=== PATIENT | female | born 1970 | race Two or more races ===

== ENCOUNTER 2023-12-01 11:20 | Emergency (ER) | payer BC ==
[~2023-12-01] VITALS: Ht 162.6 cm; Wt 72.5 kg
[2023-12-01] MEDS: SODIUM CHLORIDE 0.9% 1,000 ML IV ONE (12:00)
[2023-12-01 12:25] VITALS: BP 149/69; PULSE 63; RESP 16; TEMP 98.7; O2SAT 98
[2023-12-01 12:35] LABS: Basophils # (auto) 0.1 10 ^3/uL (0-0.2); Basophils % (auto) 1.2 % (0.0-2.0); Eosinophils # (auto) 0.2 10 ^3/uL (0-0.8); Eosinophils % (auto) 2.2 % (0.0-7.0); Hematocrit 38.6 % (36.0-46.0); Hemoglobin 13.1 g/dL (12.2-16.2); Lymphocytes # (auto) 2.7 10 ^3/uL (0.4-5.4); Lymphocytes % (auto) 36.8 % (10.0-50.0); Mean Corpuscular Hemoglobin 32.1 pg (28.0-32.0); Mean Corpuscular Hgb Conc. 33.9 g/dL (32.0-36.0); Mean Corpuscular Volume 94.9 fL (80.0-100.0); Monocytes # (auto) 0.3 10 ^3/uL (0-1.3); Monocytes % (auto) 4.3 % (0.0-12.0); Neutrophils % (auto) 55.5 % (37.0-80.0); Nucleated Red Blood Cells % 0.1 %; Platelet Count (auto) 379 10^3/uL (140-450); Red Blood Cells 4.07 10^6/uL (4.0-5.20); Red Cell Distribution Width 12.7 % (11.8-14.3); White Blood Cell 7.3 10^3/uL (4.4-10.8)
[2023-12-01 12:56] LABS: Alanine Aminotransferase 15 U/L (7-40); Albumin 4.3 g/dL (3.2-4.8); Alkaline Phosphatase 104 U/L (46-116); Anion Gap 4 (5-15); Aspartate Aminotransferase 13 U/L (13-40); BUN/Creatinine Ratio 18.4 (10.0-20.0); Bilirubin, Total 0.4 mg/dL (0.2-1.0); Blood Urea Nitrogen 16 mg/dL (9-23); CRP High Sensitivity 0.68 mg/dL (<1.0); Calcium 9.9 mg/dL (8.7-10.4); Carbon Dioxide 29 mmol/L (20-30); Chloride 108 mmol/L (98-107); Glucose 89 mg/dL (74-106); Potassium 4.3 mmol/L (3.5-5.1); Sodium 141 mmol/L (136-145)
[2023-12-01 12:57] LABS: Total Protein 6.5 g/dL (5.7-8.2)
[2023-12-01 13:07] LABS: Erythrocyte Sedimentation Rate 12 mm/hr (0-20)
[2023-12-01 13:57] LABS: Urine Bacteria FEW /hpf (None Seen); Urine Blood TRACE /uL (Negative); Urine Clarity Clear (Clear); Urine Color Light-Yellow (Yellow); Urine Protein, UAD Negative (Negative); Urine Specific Gravity 1.019 (1.001-1.035); Urine Urobilinogen Normal (Negative); Urine WBC 14 /hpf (0 - 5); Urine pH 5.5 (5.0-9.0)
[2023-12-01] MEDS ORDERED: CEPH500C PO (14:53)
== END 2023-12-01 14:57 | disposition left against medical advice (07) ==
LOC: ER 11:20
DX: S60.464A Insect bite (nonvenomous) of right ring finger, initial encounter (principal); E78.5 Hyperlipidemia, unspecified; Z90.710 Acquired absence of both cervix and uterus; Z98.890 Other specified postprocedural states; W57.XXXA Bitten or stung by nonvenomous insect and other nonvenomous arthropods, initial encounter; Y93.89 Activity, other specified; Y92.89 Other specified places as the place of occurrence of the external cause; Y99.8 Other external cause status
CPT/HCPCS: 36415; 80053; 81001; 82550; 83605; 85025; 85652; 86141; 93005; 96360; 99284; J7030

== ENCOUNTER 2024-04-19 06:39 | Inpatient (IN) | payer BC ==
[2024-04-13 09:43] LABS: Basophils # (auto) 0.1 10 ^3/uL (0-0.2); Basophils % (auto) 1.2 % (0.0-2.0); Eosinophils # (auto) 0.2 10 ^3/uL (0-0.8); Hemoglobin 13.5 g/dL (12.2-16.2); Lymphocytes # (auto) 2.2 10 ^3/uL (0.4-5.4); Lymphocytes % (auto) 35.3 % (10.0-50.0); Mean Corpuscular Hemoglobin 31.7 pg (28.0-32.0); Mean Corpuscular Hgb Conc. 33.7 g/dL (32.0-36.0); Mean Corpuscular Volume 94.2 fL (80.0-100.0); Monocytes # (auto) 0.3 10 ^3/uL (0-1.3); Monocytes % (auto) 4.9 % (0.0-12.0); Neutrophils # (auto) 3.5 10 ^3/uL (1.6-8.6); Neutrophils % (auto) 55.6 % (37.0-80.0); Platelet Count (auto) 358 10^3/uL (140-450); Red Blood Cells 4.24 10^6/uL (4.0-5.20); Red Cell Distribution Width 12.7 % (11.8-14.3); White Blood Cell 6.3 10^3/uL (4.4-10.8)
[2024-04-13 09:54] LABS: INR 1.01 (0.9-1.15); Partial Thromboplastin Time 28.1 SEC (24.5-34.5); Prothrombin Time 10.7 sec (9.3-11.8)
[2024-04-13 10:47] LABS: Alanine Aminotransferase 11 U/L (7-40); Albumin 4.3 g/dL (3.2-4.8); Alkaline Phosphatase 95 U/L (46-116); Anion Gap 7 (5-15); BUN/Creatinine Ratio 16.7 (10.0-20.0); Blood Urea Nitrogen 15 mg/dL (9-23); Calcium 9.8 mg/dL (8.7-10.4); Carbon Dioxide 27 mmol/L (20-31); Glucose 91 mg/dL (74-106); Potassium 4.3 mmol/L (3.5-5.1); Sodium 142 mmol/L (136-145)
[2024-04-13 10:48] LABS: Bilirubin, Total 0.7 mg/dL (0.2-1.0); Total Protein 6.5 g/dL (5.7-8.2)
[2024-04-13 10:56] LABS: Aspartate Aminotransferase 12 U/L (13-40); Chloride 108 mmol/L (98-107)
[2024-04-13 11:14] LABS: Urine Bacteria FEW /hpf (None Seen); Urine Blood 2+ /uL (Negative); Urine Clarity Turbid (Clear); Urine Color Light-Yellow (Yellow); Urine Mucus FEW (None Seen); Urine Protein, UAD 1+ (Negative); Urine Specific Gravity 1.021 (1.001-1.035); Urine Squamous Epithelial Cell FEW /hpf (<5); Urine Urobilinogen Normal (Negative); Urine WBC 44 /hpf (0 - 5)
[~2024-04-19] VITALS: Ht 162.6 cm; Wt 72.6 kg
[~2024-04-19 06:39] MED LIST: CHOL20004 PO; ESTR0.5T5 PO; FLU01T PO; GABA-339 PO; IBUP-1456 PO; LACTCAP35 OR; LOSA-534 PO; METH5TAB10 PO; ROSU10TA16 PO; SERT-206 PO; TRAZ-228 PO
[2024-04-19] MEDS: CIPROFLOXACIN 400MG/200ML 0 ML IV ONE (06:51)
[2024-04-19] MEDS ORDERED: PROPOFOL 10 MG/ML 20 ML IV ONE (06:55)
[2024-04-19] MEDS ORDERED: SUGAMMADEX 200mg/2ml Vial (100MG/ML) IV ONE ×2 (06:55→07:31)
[2024-04-19] MEDS ORDERED: ROCURONIUM 10MG/ML 10ML VIAL IV ONE ×2 (06:55→12:39)
[2024-04-19] MEDS ORDERED: LIDOCAINE HCL 2% TOP JELLY 5ML TOP ONE (06:55)
[2024-04-19] MEDS ORDERED: DexAMETHasone SOD PHOS 10MG/1ML VIAL INJ ONE ×2 (06:55→07:31)
[2024-04-19] MEDS ORDERED: ONDANSETRON HCL 4 MG/2 ML VIAL ONE ×2 (06:55→07:31)
[2024-04-19] MEDS ORDERED: LIDOCAINE 2% (LOCAL ANESTH.) PF 5ml SDV ONE ×2 (06:55→07:31)
[2024-04-19] MEDS ORDERED: GLYCOPYRROLATE 0.2 MG/ML 1ML VIAL ONE (06:55)
[2024-04-19] MEDS ORDERED: KETOROLAC TROMETH 30 MG/ML 1ML VIAL ONE (07:29)
[2024-04-19] MEDS ORDERED: fentaNYL CITRATE 100 MCG/2 ML VL ONE (11:48)
[2024-04-19] MEDS: CIPROFLOXACIN 400MG/200ML 200 ML IV ONE (11:51)
[2024-04-19] MEDS ORDERED: ePHEDrine SULFATE 50 MG/ML AMP ONE (12:13)
[2024-04-19] MEDS: IOHEXOL 300 MG/ML 100ML BOTTLE IJ ONE (12:20)
--- NOTE | 2024-04-19 13:15 | DVHDS2 ---
New Physician D'charge PN Admitting Diagnosis Admitting Diagnosis right renal stones Discharge Diagnosis Right nenal stones Right ureterocele Operations or Procedures Cystoscopy with right RPG Right URSLL laser lithotripsy with renal evacuation of stones Cystoscopy with right ureteral stent placement (6F x [address]) Reason(s) For Hospitalization Surgery Treatment Plan Discharge Condition of Discharge Good Disposition Home Discharge Instructions Diet: Regular Activity: Light activity Activity comment: as tolerated Medications: given Follow Up Care Follow Up/Referral: Cystoscopy with stent removal in 2-3 weeks Discharge Statement: "Patient was advised to return to the ER or call 911 if any headaches, dizziness, shortness of breath, chest pain, abdominal pain, bleeding, fevers, or worsening of medical condition. Patient was counseled about treatment plan, medications, possible side effects, patientverbalized understanding. All questions were answered to the best of my ability. This discharge took greater then 30 minutes in planning, reviewing documentation, counseling the patient, and discussing with other team members." JERALD CAPUTO MD Apr 19, 2024 13:15
[2024-04-19 13:31] VITALS: PULSE 92; RESP 14
[2024-04-19 13:35] VITALS: TEMP 97.3
[2024-04-19] MEDS ORDERED: hydrALAZINE HCL 20 MG/ML VL IV PRN (13:45)
[2024-04-19] MEDS ORDERED: FLUMAZENIL 0.1 MG/ML INJ 10ML MDV IV PRN (13:45)
[2024-04-19] MEDS ORDERED: ONDANSETRON HCL 4 MG/2 ML VIAL IV PRN (13:45)
[2024-04-19] MEDS ORDERED: ePHEDrine SULFATE 50 MG/ML AMP IV PRN (13:45)
[2024-04-19] MEDS ORDERED: NALOXONE HCL 0.4 MG/ML VIAL IV PRN (13:45)
[2024-04-19] MEDS: HYDROmorphone HCL 2 MG/ML VL/or syr ONE (13:50)
[2024-04-19] MEDS: HYDROmorphone HCL 2 MG/ML VL/or syr IV PRN (13:50)
[2024-04-19 14:00] VITALS: RESP 13
[2024-04-19] MEDS: oxyCODONE HCL 5MG TAB PO PRN (14:12)
[2024-04-19 14:22] VITALS: RESP 10
[2024-04-19] MEDS: fentaNYL CITRATE 100 MCG/2 ML VL IV PRN (14:22)
[2024-04-19 15:00] VITALS: RESP 16
[2024-04-19] MEDS ORDERED: HYDROmorphone HCL 2 MG/ML VL/or syr IV PRN (15:15)
[2024-04-19] MEDS ORDERED: MORPHINE SULFATE INJ 2 MG/ml SYRG IV PRN (15:15)
[2024-04-19] MEDS ORDERED: NITROGLYCERIN 0.4 MG SL TAB SL PRN (15:15)
--- NOTE | 2024-04-19 15:42 | DVH ---
Exam: CT CT AB PEL WO CON-NO ORAL OR IV History: flank pain Comparison Study: None Technique: Multidetector spiral CT of the abdomen and pelvis was performed from lung bases to pubic symphysis. Imaging was performed without IV contrast. Axial, coronal and sagittal multiplanar reform ats were obtained from the axial data set by the technologist. Radiation dose : Abdomen/Pelvis: CTDIvol 9 mGy, DLP 494 mGy*cm. Findings: Evaluation of solid organs is limited due to lack of intravenous contrast use. Lung Bases: Atelectasis and scarring in the lung bases. Liver: The liver is normal in size. No focal lesions. Gallbladder and biliary Tree: Unremarkable Spleen: Unremarkable Pancreas: The pancreas is grossly normal in appearance. Adrenal Glands: Unremarkable Kidneys: Right double-J ureteral stent in place. Multiple right renal calculi, largest measuring up t o 6 mm. No significant right hydronephrosis. Left kidney appears unremarkable. Bladder: Bladder is decompressed with a Rojas catheter and cannot be adequately assessed. Bowel: The stomach is grossly normal in appearance. Small bowel and colon are normal in caliber and d istribution. Normal appendix is visualized in the right lower quadrant without findings of appendici tis. Ascites: Absent Lymphadenopathy: No mesenteric, retroperitoneal or periportal lymphadenopathy. Abdominal wall and Mesentery: Unremarkable. Vasculature: Calcified atherosclerotic disease. Pelvic Organs: The uterus is surgically absent. Musculoskeletal: No aggressive focal bony lesions, acute fractures or dislocation. IMPRESSION: 1. Right double-J ureteral stent in place. No significant hydronephrosis. Multiple right renal calcu li, largest measuring up to 6 mm. Radiation optimization: All CT scans at this facility use at least one of these dose optimization giana hniques: Automated exposure control mA and/or kV adjustment per patient size (includes targeted exams where dose is matched to clinical indication) or iterative reconstruction. HS:Y
[2024-04-19 16:00] VITALS: BP 114/52; PULSE 100; RESP 17; O2SAT 96
--- NOTE | 2024-04-19 18:08 | DVH ---
Date: 04/19/2024 01:18 PM Examination: XY KUB ABDOMEN SINGLE VIEW History: RIGHT URETEROSCOPIC LITHOTRIPSY/ STENT PLACEMENT Comparison: None TECHNIQUE: Frontal views of the abdomen was obtained. FINDINGS: 11 images retrograde pyelogram on the right with laser lithotripsy and placement of a stent. Total fluoro time 41.2 seconds Cumulative dose: 6.39 mGy IMPRESSION: 1. Right laser lithotripsy with stent placement
--- NOTE | 2024-04-19 18:16 | DVH ---
C-ARM FLUOROSCOPY: PROCEDURE: Right laser lithotripsy FLUOROSCOPY TIME: 41.2 seconds DAP: 6.39 mgy FINDINGS: Spot intraoperative C arm radiographs demonstrating no images given. IMPRESSION: 1. Please refer to surgical report for detailed findings.
== END 2024-04-19 16:40 | disposition home or self-care (01) | DRG 661 ==
LOC: SUR 06:39 → OVERFLOW 15:10
PROVIDERS: ADMIT Urology; ATTEND Urology
PROC: 0TC08ZZ Extirpation of Matter from Right Kidney, Via Natural or Artificial Opening Endoscopic (ICD-10-PCS; 2024-04-19)
PROC: 0T768DZ Dilation of Right Ureter with Intraluminal Device, Via Natural or Artificial Opening Endoscopic (ICD-10-PCS; principal; 2024-04-19 11:51)
DX: N20.0 Calculus of kidney (principal); N28.89 Other specified disorders of kidney and ureter
CPT/HCPCS: 36415; 74018; 74176; 76000; 80053; 81001; 85025; 85610; 85730; 87086; G0378; J1100; J1885; J2003; J2405; J2704